=== PATIENT | female | born 1985 | race American Indian/Alaskan Native ===

== ENCOUNTER 2017-08-27 23:02 | Emergency (ER) | payer SELFPAY ==
[2017-08-27] MEDS ORDERED: ASPIRIN PO ONE (23:43)
[2017-08-28 00:04] LABS: Basophils # (Auto) 0.1 K/mm3 (0.0-0.1); Basophils % (Auto) 0.6 % (0.0-1.8); Eosinophils # (Auto) 0.2 K/mm3 (0.0-0.4); Eosinophils % (Auto) 1.8 % (0.0-4.3); Hematocrit 40.9 % (30.3-42.9); Hemoglobin 14.2 gm/dl (10.1-14.3); Lymphocytes # (Auto) 3.5 K/mm3 (1.2-5.4); Lymphocytes % (Auto) 28.2 % (13.4-35.0); Mean Corpuscular HGB Conc 35 % (30-34); Mean Corpuscular Hemoglobin 31 pg (28-32); Mean Corpuscular Volume 89 fl (79-97); Monocytes # (Auto) 0.6 K/mm3 (0.0-0.8); Monocytes % (Auto) 5.2 % (0.0-7.3); Platelet Count 250 K/mm3 (140-440); Red Blood Count 4.61 M/mm3 (3.65-5.03); Red Cell Distribution Width 13.1 % (13.2-15.2)
[2017-08-28 01:01] LABS: BUN/Creatinine Ratio 17; Blood Urea Nitrogen 10 mg/dL (7-17); Calcium 10.4 mg/dL (8.4-10.2); Hemolysis Index 13
[2017-08-28 02:13] LABS: Bilirubin,Urine NEG (Negative); Blood,Urine LG (Negative); Color,Urine Yellow (Yellow); Mucus,Urine FEW /HPF; Protein,Urine <15 mg/dL mg/dL (Negative); Urobilinogen,Urine < 2.0 mg/dL (<2.0)
[2017-08-28 02:23] LABS: Amphetamine Screen,Urine PRESUMPTIVE NEGATIVE; Benzodiazepines Screen,Urine PRESUMPTIVE NEGATIVE; Cocaine Screen,Urine PRESUMPTIVE NEGATIVE; Methadone Screen,Urine PRESUMPTIVE NEGATIVE; Opiate Screen,Urine PRESUMPTIVE NEGATIVE
[2017-08-28 02:35] LABS: Cannabinoid Screen,Urine PRESUMPTIVE POSITIVE
--- NOTE | 2017-08-28 04:14 | Emergency Department Report ---
ED Chest Pain HPI - General Chief Complaint: Chest Pain Stated Complaint: PANIC ATTACK Time Seen by Provider: 08/28/17 02:51 Source: patient Mode of arrival: Ambulatory Limitations: No Limitations - History of Present Illness Initial Comments: Patient said she also felt sweaty with tremors in the upper extremities. She felt tightness in the chest and lightheadedness. She also felt numbness and tingling in her extremities. Patient states she's been having diarrhea for the past 5 days. She however denies any abdominal pain MD Complaint: chest pain Onset/Timin (day) -: Gradual Onset: during rest Pain Location: substernal Pain Radiation: none Severity: moderate Severity scale (0 -10): 8 Quality: tightness Consistency: constant Improves With: nothing Worsens With: nothing re: nausea - Related Data Previous Rx's Medication Instructions Recorded Last Taken Type Ciprofloxacin HCl [Ciprofloxacin 500 mg PO BID #20 tablet 08/28/17 Unknown Rx TAB] metroNIDAZOLE [Flagyl] 500 mg PO Q8HR #30 tablet 08/28/17 Unknown Rx Allergies Allergy/AdvReac Type Severity Reaction Status Date / Time No Known Allergies Allergy Unverified 08/27/17 23:32 Heart Score - HEART Score History: Slightly suspicious EKG: Normal Age: < 45 Risk factors: 1-2 risk factors Troponin: < normal limit HEART Score: 1 ED Review of Systems ROS: Stated complaint: PANIC ATTACK Other details as noted in HPI Comment: All other systems reviewed and negative ED Past Medical Hx - Past Medical History Previous Medical History?: Yes Hx Diabetes: Yes Additional medical history: Polycystic Ovarian Syndrome - Surgical History Past Surgical History?: Yes Hx Cholecystectomy: Yes - Social History Smoking Status: Current Every Day Smoker Substance Use Type: Alcohol, Marijuana - Medications Home Medications: Home Medications Medication Instructions Recorded Confirmed Last Taken Type Ciprofloxacin HCl [Ciprofloxacin 500 mg PO BID #20 tablet 08/28/17 Unknown Rx TAB] metroNIDAZOLE [Flagyl] 500 mg PO Q8HR #30 tablet 08/28/17 Unknown Rx ED Physical Exam - General Limitations: No Limitations General appearance: alert, in no apparent distress - Head Head exam: Present: atraumatic, normocephalic - Eye Eye exam: Present: normal appearance - ENT ENT exam: Present: mucous membranes moist - Neck Neck exam: Present: normal inspection - Respiratory Respiratory exam: Present: normal lung sounds bilaterally. Absent: respiratory distress - Cardiovascular Cardiovascular Exam: Present: regular rate, normal rhythm. Absent: systolic murmur, diastolic murmur, rubs, gallop - GI/Abdominal GI/Abdominal exam: Present: soft, distended (uniformly distended), normal bowel sounds - Rectal Rectal exam: Present: deferred - Extremities Exam Extremities exam: Present: normal inspection - Back Exam Back exam: Present: normal inspection - Neurological Exam Neurological exam: Present: alert, oriented X3 - Psychiatric Psychiatric exam: Present: normal affect, normal mood - Skin Skin exam: Present: warm, dry, intact, normal color. Absent: rash ED Course Vital Signs 08/27/17 08/28/17 08/28/17 23:39 01:43 01:45 Temperature 98.5 F Pulse Rate 73 69 76 Respiratory 20 14 16 Rate Blood Pressure 168/99 134/73 O2 Sat by Pulse 98 99 98 Oximetry 08/28/17 01:49 Temperature Pulse Rate Respiratory 18 Rate Blood Pressure O2 Sat by Pulse 100 Oximetry ED Medical Decision Making - Lab Data Result diagrams: 08/27/17 23:52 08/27/17 23:52 - EKG Data -: EKG Interpreted by Me EKG shows normal: sinus rhythm (normal sinus rhythm at a rate of 68), axis ( normal), intervals (normal), QRS complexes (normal), ST-T waves (normal) - Medical Decision Making The patient has no abdominal pain as such I did not do a CT of abdomen and pelvis. However given the fact that she's been having diarrhea for 5 days I doubt if this is viral, we'll treat her empirically with ciprofloxacin and Flagyl. I did advise the patient to do stool studies with her primary care physician as soon as possible Critical care attestation.: If time is entered above; I have spent that time in minutes in the direct care of this critically ill patient, excluding procedure time. ED Disposition Clinical Impression: Atypical chest pain, Panic attack, Diarrhea Disposition: TO HOME OR SELFCARE Is pt being admited?: No Does the pt Need Aspirin: No Condition: Stable Instructions: Chest Pain (ED) Additional Instructions: Follow-up with your primary care physician as soon as possible for stool studies Prescriptions: Ciprofloxacin HCl [Ciprofloxacin TAB] 500 mg PO BID #20 tablet metroNIDAZOLE [Flagyl] 500 mg PO Q8HR #30 tablet Referrals: PRIMARY CARE, [Referring] - 24 Hours Time of Disposition: 04:19 Print Language: RUSSIAN
[2017-08-28] MEDS ORDERED: LEVAQUIN PO ONE (04:19)
[2017-08-28] MEDS ORDERED: FLAGYL PO ONE (04:20)
[2017-08-28 04:40] VITALS: BP 142/76
== END 2017-08-28 04:43 | disposition home or self-care (01) ==
LOC: ED 23:02
DX: F41.0 Panic disorder [episodic paroxysmal anxiety] (principal); R19.7 Diarrhea, unspecified; R20.0 Anesthesia of skin; E11.9 Type 2 diabetes mellitus without complications; F17.200 Nicotine dependence, unspecified, uncomplicated; F12.10 Cannabis abuse, uncomplicated; E28.2 Polycystic ovarian syndrome; Z79.899 Other long term (current) drug therapy
CPT/HCPCS: 36415; 80048; 80307; 81001; 84484; 85025; 93005; 93010; 99284; G0480; 80320

== ENCOUNTER 2018-10-09 06:57 | Emergency (ER) | payer OTHER ==
[2018-10-09 07:32] LABS: Basophils # (Auto) 0.1 K/mm3 (0.0-0.1); Eosinophils # (Auto) 0.2 K/mm3 (0.0-0.4); Eosinophils % (Auto) 1.7 % (0.0-4.3); Hematocrit 43.4 % (30.3-42.9); Hemoglobin 14.9 gm/dl (10.1-14.3); Lymphocytes # (Auto) 3.9 K/mm3 (1.2-5.4); Lymphocytes % (Auto) 31.6 % (13.4-35.0); Mean Corpuscular HGB Conc 34 % (30-34); Mean Corpuscular Volume 90 fl (79-97); Monocytes # (Auto) 0.8 K/mm3 (0.0-0.8); Monocytes % (Auto) 6.3 % (0.0-7.3); Platelet Count 256 K/mm3 (140-440); Red Blood Count 4.82 M/mm3 (3.65-5.03); Red Cell Distribution Width 12.9 % (13.2-15.2)
--- NOTE | 2018-10-09 07:47 | Emergency Department Report ---
HPI - General Chief Complaint: Abdominal Pain Time Seen by Provider: 10/09/18 07:17 - HPI HPI: 32-year-old -[place] female presents to the emergency Department with complaints of some pelvic pain and some vaginal pain with itching and mild discharge. She says that the pelvic pain has been going on for the past 2 days. The vaginal pain/irritation, itching and discharge has been going on for the past 2 weeks. The patient says that she tried 4 days of a "yeast infection kit" but she does not have any improvement. She denies any dysuria, fever, nausea, vomiting. She does not have a primary care physician or [employer]. She has a past medical history of diabetes and polycystic ovarian syndrome. The patient has been off of her medications for the past two months as she says that she can not afford them. ED Past Medical Hx - Past Medical History Hx Diabetes: Yes Additional medical history: Polycystic Ovarian Syndrome - Surgical History Hx Cholecystectomy: Yes - Social History Smoking Status: Current Every Day Smoker Substance Use Type: Alcohol, Marijuana - Medications Home Medications: Home Medications Medication Instructions Recorded Confirmed Last Taken Type Ciprofloxacin HCl [Ciprofloxacin 500 mg PO BID #20 tablet 08/28/17 Unknown Rx TAB] metroNIDAZOLE [Flagyl] 500 mg PO Q8HR #30 tablet 08/28/17 Unknown Rx Fluconazole [Diflucan TAB] 150 mg PO Q72H #2 tablet 10/09/18 Unknown Rx traMADol [Ultram 50 MG tab] 50 mg PO Q6HR PRN #10 tablet 10/09/18 Unknown Rx ED Review of Systems ROS: Stated complaint: ABDOMINAL/VAGINAL PAIN Other details as noted in HPI Constitutional: denies: chills, fever Eyes: denies: eye pain, vision change ENT: denies: ear pain, throat pain Respiratory: denies: cough, shortness of breath Cardiovascular: denies: chest pain, palpitations Gastrointestinal: denies: abdominal pain, vomiting Genitourinary: discharge, other (pelvic pain). denies: dysuria Musculoskeletal: denies: back pain, arthralgia Skin: denies: rash, lesions Neurological: denies: headache, weakness Physical Exam - Physical Exam Vital Signs: Vital Signs 10/09/18 07:01 Temperature 98.3 F Pulse Rate 72 Respiratory 16 Rate Blood Pressure 145/96 O2 Sat by Pulse 100 Oximetry Physical Exam: GENERAL: The patient is well-developed well-nourished. HENT: Normocephalic. Atraumatic. Patient has moist mucous membranes. EYES: Extraocular motions are intact. Pupils equal reactive to light bilaterally. NECK: Supple. Trachea is midline. CHEST/LUNGS: Clear to auscultation. There is no respiratory distress noted. HEART/CARDIOVASCULAR: Regular. There is no tachycardia. There is no murmur. ABDOMEN: Abdomen is soft, nontender. Patient has normal bowel sounds. Obese habitus. SKIN: Skin is warm and dry. NEURO: The patient is awake, alert, and oriented. The patient is cooperative. The patient has no focal neurologic deficits. The patient has normal speech. MUSCULOSKELETAL: There is no tenderness or deformity. There is no evidence of acute injury. PELVIC: The skin of the bilateral labia appears pale with some ashy white appearance and may be slightly inflamed. No visible lesions. There is some mild to moderate thin white discharge seen in the vaginal vault. ED Course Vital Signs 10/09/18 07:01 Temperature 98.3 F Pulse Rate 72 Respiratory 16 Rate Blood Pressure 145/96 O2 Sat by Pulse 100 Oximetry ED Medical Decision Making - Lab Data Result diagrams: 10/09/18 07:12 10/09/18 07:12 - Radiology Data Radiology results: report reviewed ULTRASOUND PELVIC COMPLETE ULTRASOUND PELVIS DUPLEX DOPPLER COMPLETE HISTORY: Pelvic pain. COMPARISON: None. TECHNIQUE: Transabdominal and transvaginal ultrasound with color doppler interrogation. FINDINGS: Uterus: Anteverted. 8.3 x 4.3 x 5.6 cm. No uterine mass. Normal cervix. Endometrium: Within normal limits. The endometrium measures 13 mm in thickness. Right ovary: Normal. Left ovary: Normal. No pelvic fluid or mass is identified. Spectral Doppler waveforms demonstrate arterial flow to both ovaries. IMPRESSION: Unremarkable transabdominal and transvaginal pelvic ultrasounds. Transcribed By: TTR Dictated By: BLANE MARTÍNEZ JR, MD Electronically Authenticated By: BLANE MARTÍNEZ JR, MD Signed Date/Time: 10/09/18 0902 - Medical Decision Making Patient presents to the emergency department complaining of some pelvic pain and some vaginal irritation with mild discharge. The patient's labs shows some hyperglycemia with a blood sugar of about 350 but she does not appear to be in diabetic ketoacidosis. She was given IV fluid and insulin and upon recheck her blood sugar was down to about 180. Urinalysis did not show any urinary tract infection and the patient is not . A pelvic ultrasound was done that resulted as a normal examination. Vital signs stable throughout her ED course. The patient says that she has been noncompliant with her insulin because of financial issues, which she says that she continues to have. Therefore we discussed more dietary and lifestyle changes to make and the patient will follow up outpatient with a primary care physician. She is also been given referrals for [employer] [employer]. She will return to the ER with any worsening of her symptoms or any acute distress. On examination, the patient has some pale ashy appearance and possible inflammation to the bilateral labia. This may still be consistent with a external or cutaneous yeast infection and the patient has been placed on 2 doses of Diflucan. - Differential Diagnosis ovarian torsion, ovarian cyst, BV, yeast infection Critical Care Time: No Critical care attestation.: If time is entered above; I have spent that time in minutes in the direct care of this critically ill patient, excluding procedure time. ED Disposition Clinical Impression: Pelvic pain, Candidal vulvovaginitis, Hyperglycemia Disposition: DC-01 TO HOME OR SELFCARE Is pt being admited?: No Condition: Stable Instructions: Vulvovaginal Candidiasis (ED) Additional Instructions: Please follow up with a primary care physician regarding your diabetes and for a general checkup/evaluation. You will also need to see an [employer]UFACTURING LEAD regarding your pelvic and vaginal pains. I will give you referrals for both. Return to the emergency Department with any worsening of your symptoms or any acute distress. Try and stay away from foods that are high in sugar, carbohydrates and starches to help with your blood sugar. Keep a blood sugar log. You have been prescribed a medication that is sedating and therefore should not be taken prior to driving, working, and responsible for children and in no way should be mixed with alcohol of any quantity. Prescriptions: Fluconazole [Diflucan TAB] 150 mg PO Q72H #2 tablet traMADol [Ultram 50 MG tab] 50 mg PO Q6HR PRN #10 tablet PRN Reason: Pain Referrals: [facility] [Provider Group] - 2-3 Days [facility] [Provider Group] - 2-3 Days [facility] [Outside] - 2-3 Days SHNO KIDD MD [Staff Physician] - 2-3 Days Forms: Work/School Release Form(ED)
[2018-10-09 07:55] LABS: Alanine Aminotransferase 27 units/L (7-56); Albumin 4.1 g/dL (3.9-5); BUN/Creatinine Ratio 16; Blood Urea Nitrogen 8 mg/dL (7-17); Calcium 10.6 mg/dL (8.4-10.2); Hemolysis Index 25
[2018-10-09] MEDS ORDERED: NACL 0.9% 1000 ML 1,000 ML IV ONE (08:02)
[2018-10-09] MEDS ORDERED: HumuLIN R IV ONE (08:02)
[2018-10-09 08:05] LABS: Bilirubin,Urine NEG (Negative); Blood,Urine SM (Negative); Color,Urine Yellow (Yellow); Mucus,Urine FEW /HPF; Protein,Urine <15 mg/dL mg/dL (Negative); Urobilinogen,Urine < 2.0 mg/dL (<2.0)
--- NOTE | 2018-10-09 09:07 | Ultrasound Report ---
ULTRASOUND PELVIC COMPLETE ULTRASOUND PELVIS DUPLEX DOPPLER COMPLETE HISTORY: Pelvic pain. COMPARISON: None. TECHNIQUE: Transabdominal and transvaginal ultrasound with color doppler interrogation. FINDINGS: Uterus: Anteverted. 8.3 x 4.3 x 5.6 cm. No uterine mass. Normal cervix. Endometrium: Within normal limits. The endometrium measures 13 mm in thickness. Right ovary: Normal. Left ovary: Normal. No pelvic fluid or mass is identified. Spectral Doppler waveforms demonstrate arterial flow to both ovaries. IMPRESSION: Unremarkable transabdominal and transvaginal pelvic ultrasounds.
[2018-10-09 10:15] VITALS: BP 158/100
== END 2018-10-09 10:13 | disposition home or self-care (01) ==
LOC: ED 06:57
DX: B37.3 Candidiasis of vulva and vagina (principal); F17.200 Nicotine dependence, unspecified, uncomplicated; F12.10 Cannabis abuse, uncomplicated; E11.65 Type 2 diabetes mellitus with hyperglycemia; Z90.49 Acquired absence of other specified parts of digestive tract; Z91.011 Allergy to milk products
CPT/HCPCS: 36415; 76830; 80053; 81001; 82962; 83690; 84703; 85025; 87210; 93975; 96361; 96374; 99285; J7030; J1815

== ENCOUNTER 2019-07-25 20:07 | Emergency (ER) | payer SELFPAY ==
[2019-07-26 02:25] LABS: Basophils # (Auto) 0.1 K/mm3 (0.0-0.1); Basophils % (Auto) 1.1 % (0.0-1.8); Eosinophils # (Auto) 0.2 K/mm3 (0.0-0.4); Eosinophils % (Auto) 1.9 % (0.0-4.3); Hemoglobin 14.6 gm/dl (10.1-14.3); Lymphocytes # (Auto) 3.9 K/mm3 (1.2-5.4); Lymphocytes % (Auto) 32.7 % (13.4-35.0); Mean Corpuscular HGB Conc 34 % (30-34); Mean Corpuscular Volume 89 fl (79-97); Monocytes # (Auto) 0.8 K/mm3 (0.0-0.8); Monocytes % (Auto) 6.9 % (0.0-7.3); Platelet Count 255 K/mm3 (140-440); Red Blood Count 4.81 M/mm3 (3.65-5.03)
[2019-07-26 02:47] LABS: Alanine Aminotransferase 26 units/L (7-56); BUN/Creatinine Ratio 20; Blood Urea Nitrogen 10 mg/dL (7-17); Calcium 10.5 mg/dL (8.4-10.2); Hemolysis Index 17
[2019-07-26 04:39] LABS: Bilirubin,Urine NEG (Negative); Blood,Urine NEG (Negative); Color,Urine Straw (Yellow); Mucus,Urine FEW /HPF; Protein,Urine <15 mg/dL mg/dL (Negative); Urobilinogen,Urine < 2.0 mg/dL (<2.0)
[2019-07-26] MEDS ORDERED: DICYCLOMINE 20 MG/2 ML INJ IM ONE (06:36)
[2019-07-26] MEDS ORDERED: FAMOTIDINE 20 MG TAB PO ONE (06:36)
[2019-07-26] MEDS ORDERED: METOCLOPRAMIDE 10 MG TAB PO ONE (06:36)
[2019-07-26] MEDS ORDERED: INSULIN REGULAR, HUMAN 100 UNITS/1 ML SUB-Q ONE (06:36)
[2019-07-26] MEDS ORDERED: ACETAMINOPHEN 325 MG TAB PO ONE (06:36)
--- NOTE | 2019-07-26 06:37 | Emergency Department Report ---
ED General Adult HPI - General Chief complaint: Abdominal Pain Stated complaint: FLU SYM Time Seen by Provider: 07/26/19 06:04 Source: patient, RN notes reviewed, old records reviewed Mode of arrival: Ambulatory Limitations: No Limitations - History of Present Illness Initial comments: During the entire history and physical examination, I am janitorial services supervisor and escorted by obstetrics gyn Ghanshyam Badillo The patient is a 33-year-old female, obese, with a history of possible PCOS, diabetes, noncompliant with metformin therapy. Prior urine screening toxicology studies have demonstrated the presence of marijuana. The patient presents to the ER today with a complaint of resolved lower abdominal pain, nausea and vomiting. She is not having pain at the moment. W hen she was having pain, she described it as cramping. She threw up once or twice, 7-1/2 hours ago, nonbloody, nonbilious, now resolved. She is defecating normally. She reports urinary urge, however, denies dysuria. At the moment, is no complaint of headache, neck pain, chest pain, abdominal pain, shortness of breath. She endorses occasional relief of symptoms after taking a hot bath or hot shower Location: abdomen Consistency: now resolved Improves with: none Worsens with: none - Related Data Previous Rx's Medication Instructions Recorded Last Taken Type Ciprofloxacin HCl [Ciprofloxacin 500 mg PO BID #20 tablet 08/28/17 Unknown Rx TAB] metroNIDAZOLE [Flagyl] 500 mg PO Q8HR #30 tablet 08/28/17 Unknown Rx Fluconazole [Diflucan TAB] 150 mg PO Q72H #2 tablet 10/09/18 Unknown Rx Acetaminophen [Tylenol] 650 mg PO Q6HR PRN #30 capsule 07/26/19 Unknown Rx Famotidine [Pepcid] 20 mg PO BID PRN #60 tablet 07/26/19 Unknown Rx Metoclopramide [Reglan] 10 mg PO QID PRN #30 tab 07/26/19 Unknown Rx metFORMIN [Glucophage] 500 mg PO BID #60 tablet 07/26/19 Unknown Rx Allergies Allergy/AdvReac Type Severity Reaction Status Date / Time milk AdvReac Diarrhea Verified 10/09/18 07:01 ED Review of Systems ROS: Stated complaint: FLU SYM Other details as noted in HPI Constitutional: denies: fever Eyes: denies: eye discharge ENT: denies: congestion Respiratory: denies: wheezing Cardiovascular: denies: syncope Gastrointestinal: abdominal pain, nausea, vomiting. denies: diarrhea, constipation, hematemesis, melena, hematochezia Genitourinary: as per HPI Musculoskeletal: as per HPI Skin: as per HPI Neurological: as per HPI Psychiatric: as per HPI Hematological/Lymphatic: as per HPI ED Past Medical Hx - Past Medical History Previous Medical History?: Yes Hx Diabetes: Yes Additional medical history: Polycystic Ovarian Syndrome - Surgical History Past Surgical History?: Yes Hx Cholecystectomy: Yes - Social History Smoking Status: Current Every Day Smoker Substance Use Type: Marijuana - Medications Home Medications: Home Medications Medication Instructions Recorded Confirmed Last Taken Type Ciprofloxacin HCl [Ciprofloxacin 500 mg PO BID #20 tablet 08/28/17 Unknown Rx TAB] metroNIDAZOLE [Flagyl] 500 mg PO Q8HR #30 tablet 08/28/17 Unknown Rx Fluconazole [Diflucan TAB] 150 mg PO Q72H #2 tablet 10/09/18 Unknown Rx Acetaminophen [Tylenol] 650 mg PO Q6HR PRN #30 capsule 07/26/19 Unknown Rx Famotidine [Pepcid] 20 mg PO BID PRN #60 tablet 07/26/19 Unknown Rx Metoclopramide [Reglan] 10 mg PO QID PRN #30 tab 07/26/19 Unknown Rx metFORMIN [Glucophage] 500 mg PO BID #60 tablet 07/26/19 Unknown Rx ED Physical Exam - General Limitations: No Limitations General appearance: alert, in no apparent distress - Head Head exam: Present: atraumatic, normocephalic - Eye Eye exam: Present: normal appearance, EOMI. Absent: nystagmus - ENT ENT exam: Present: normal exam, normal orophraynx, mucous membranes moist, normal external ear exam - Neck Neck exam: Present: normal inspection, full ROM. Absent: tenderness, meningismus - Respiratory Respiratory exam: Present: normal lung sounds bilaterally. Absent: respiratory distress - Cardiovascular Cardiovascular Exam: Present: regular rate, normal rhythm, normal heart sounds. Absent: bradycardia, tachycardia, irregular rhythm, systolic murmur, diastolic murmur, rubs, gallop - GI/Abdominal GI/Abdominal exam: Present: soft, normal bowel sounds, other (There is no right lower quadrant tenderness, there is no right upper quadrant tenderness, there is a negative Burns sign and negative Rovsing sign.). Absent: distended, tenderness, guarding, rebound, rigid, pulsatile mass - Extremities Exam Extremities exam: Present: normal inspection, full ROM, other (2+ pulses noted in the bilateral upper and lower extremities. There is no palpable cord. negative Homans sign. Muscular compartments are soft. The pelvis is stable.). Absent: pedal edema, calf tenderness - Back Exam Back exam: Present: normal inspection. Absent: tenderness, CVA tenderness (R), CVA tenderness (L), paraspinal tenderness, vertebral tenderness - Neurological Exam Neurological exam: Present: alert, normal gait, other (There is no facial droop. The tongue is midline. Extraocular movements are intact bilaterally. There is 5 out of 5 strength in bilateral upper and lower extremities. Sensation is intact to light touch bilateral upper and lower extremities. There is a normal gait.). Absent: motor sensory deficit - Psychiatric Psychiatric exam: Present: normal affect, normal mood - Skin Skin exam: Present: warm, dry, intact, normal color. Absent: rash ED Course Vital Signs 07/25/19 07/26/19 07/26/19 21:51 06:45 06:55 Temperature 98.6 F 97.8 F Pulse Rate 72 58 L Respiratory 18 18 18 Rate Blood Pressure 139/88 Blood Pressure 139/73 [Left] O2 Sat by Pulse 97 95 Oximetry ED Medical Decision Making - Lab Data Result diagrams: 07/26/19 02:15 07/26/19 02:15 Vital Signs 07/25/19 07/26/19 07/26/19 21:51 06:45 06:55 Temperature 98.6 F 97.8 F Pulse Rate 72 58 L Respiratory 18 18 18 Rate Blood Pressure 139/88 Blood Pressure 139/73 [Left] O2 Sat by Pulse 97 95 Oximetry Lab Results 07/25/19 07/26/19 07/26/19 Range/Units 22:08 02:15 02:15 WBC 11.8 H (4.5-11.0) K/mm3 RBC 4.81 (3.65-5.03) M/mm3 Hgb 14.6 H (10.1-14.3) gm/dl Hct 43.0 H (30.3-42.9) % MCV 89 (79-97) fl MCH 30 (28-32) pg MCHC 34 (30-34) % RDW 13.0 L (13.2-15.2) % Plt Count 255 (140-440) K/mm3 Lymph % (Auto) 32.7 (13.4-35.0) % [place] % (Auto) 6.9 (0.0-7.3) % Eos % (Auto) 1.9 (0.0-4.3) % Baso % (Auto) 1.1 (0.0-1.8) % Lymph # 3.9 (1.2-5.4) K/mm3 [place] # 0.8 (0.0-0.8) K/mm3 Eos # 0.2 (0.0-0.4) K/mm3 Baso # 0.1 (0.0-0.1) K/mm3 Seg Neutrophils % 57.4 (40.0-70.0) % Seg Neutrophils # 6.8 (1.8-7.7) K/mm3 Sodium 133 L (137-145) mmol/L Potassium 4.0 (3.6-5.0) mmol/L Chloride 96.0 L (98-107) mmol/L Carbon Dioxide 24 (22-30) mmol/L Anion Gap 17 mmol/L BUN 10 (7-17) mg/dL Creatinine 0.5 L (0.7-1.2) mg/dL Estimated GFR > 60 ml/min BUN/Creatinine Ratio 20 % Glucose 310 H (65-100) mg/dL POC Glucose 311 H (70-105) Calcium 10.5 H (8.4-10.2) mg/dL Total Bilirubin 0.20 (0.1-1.2) mg/dL AST 21 (5-40) units/L ALT 26 (7-56) units/L Alkaline Phosphatase 96 (35-129) units/L Total Protein 7.5 (6.3-8.2) g/dL Albumin 4.0 (3.9-5) g/dL Albumin/Globulin Ratio 1.1 % Lipase 29 (13-60) units/L HCG, Qual (Negative) Urine Color (Yellow) Urine Turbidity (Clear) Urine pH (5.0-7.0) Ur Specific [place] (1.003-1.030) Urine Protein (Negative) mg/dL Urine Glucose (UA) (Negative) mg/dL Urine Ketones (Negative) mg/dL Urine Blood (Negative) Urine Nitrite (Negative) Urine Bilirubin (Negative) Urine Urobilinogen (<2.0) mg/dL Ur Leukocyte Esterase (Negative) Urine WBC (Auto) (0.0-6.0) /HPF Urine RBC (Auto) (0.0-6.0) /HPF U Epithel Cells (Auto) (0-13.0) /HPF Urine Mucus /HPF 07/26/19 07/26/19 Range/Units 02:15 Unknown WBC (4.5-11.0) K/mm3 RBC (3.65-5.03) M/mm3 Hgb (10.1-14.3) gm/dl Hct (30.3-42.9) % MCV (79-97) fl MCH (28-32) pg MCHC (30-34) % RDW (13.2-15.2) % Plt Count (140-440) K/mm3 Lymph % (Auto) (13.4-35.0) % [place] % (Auto) (0.0-7.3) % Eos % (Auto) (0.0-4.3) % Baso % (Auto) (0.0-1.8) % Lymph # (1.2-5.4) K/mm3 [place] # (0.0-0.8) K/mm3 Eos # (0.0-0.4) K/mm3 Baso # (0.0-0.1) K/mm3 Seg Neutrophils % (40.0-70.0) % Seg Neutrophils # (1.8-7.7) K/mm3 Sodium (137-145) mmol/L Potassium (3.6-5.0) mmol/L Chloride (98-107) mmol/L Carbon Dioxide (22-30) mmol/L Anion Gap mmol/L BUN (7-17) mg/dL Creatinine (0.7-1.2) mg/dL Estimated GFR ml/min BUN/Creatinine Ratio % Glucose (65-100) mg/dL POC Glucose (70-105) Calcium (8.4-10.2) mg/dL Total Bilirubin (0.1-1.2) mg/dL AST (5-40) units/L ALT (7-56) units/L Alkaline Phosphatase (35-129) units/L Total Protein (6.3-8.2) g/dL Albumin (3.9-5) g/dL Albumin/Globulin Ratio % Lipase (13-60) units/L HCG, Qual Negative (Negative) Urine Color Straw (Yellow) Urine Turbidity Clear (Clear) Urine pH 5.0 (5.0-7.0) Ur Specific [place] 1.033 H (1.003-1.030) Urine Protein <15 mg/dl (Negative) mg/dL Urine Glucose (UA) >=500 (Negative) mg/dL Urine Ketones Neg (Negative) mg/dL Urine Blood Neg (Negative) Urine Nitrite Neg (Negative) Urine Bilirubin Neg (Negative) Urine Urobilinogen < 2.0 (<2.0) mg/dL Ur Leukocyte Esterase Neg (Negative) Urine WBC (Auto) 1.0 (0.0-6.0) /HPF Urine RBC (Auto) 1.0 (0.0-6.0) /HPF U Epithel Cells (Auto) 2.0 (0-13.0) /HPF Urine Mucus Few /HPF - EKG Data -: EKG Interpreted by Ok - EKG Data 07/26/19 07:22 EKG shows sinus rhythm, bradycardia, normal axis, QTC within normal limits, FL interval within normal limits, there is no endorsement of chest pain, the EKG is fairly unremarkable, it is not an ST elevation myocardial infarction - Medical Decision Making Differential diagnosis, including but not limited to: Gastroparesis, cyclic vomiting syndrome, cannabinoid hyperemesis syndrome, constipation Assessment and plan: 33-year-old female with resolved abdominal pain, nausea and vomiting. She is afebrile with reassuring vital signs. There is currently no abdominal pain, and she is not tender on her examination. When I walked into the room to examine the patient, she is sleeping on a stretcher, and in no acute distress. We will refill her metformin prescription, she is advised to abstain from marijuana consumption, laboratory studies reviewed and appreciated, hyperglycemia chronic, without anion gap acidosis. Patient will need to follow- up with an outpatient primary care doctor, participate in diet and lifestyle modifications. At the moment, she does not appear to have an emergency medical condition present. Critical care attestation.: If time is entered above; I have spent that time in minutes in the direct care of this critically ill patient, excluding procedure time. ED Disposition Clinical Impression: History of abdominal pain, History of nausea and vomiting Disposition: DC- TO HOME OR SELFCARE Is pt being admited?: No Does the pt Need Aspirin: No Condition: Stable Additional Instructions: We recommend that the patient diet, lose weight, participate in physical activities as tolerated, drink 4 to 6 cups of water per day, and eat plenty of fiber, vegetables, and lean protein. Avoid consumption of marijuana, alcohol, and avoid secondhand exposure to marijuana. Take medications as needed for pain, take the nausea medication as needed for nausea, and metformin medication as directed. Recommend follow-up with a primary care doctor within the next 4 weeks. Please return to the emergency room right away with projectile vomiting, change in mental status, confusion, inability to tolerate liquid feeds, new, worsened or different symptoms not present on the initial emergency room evaluation. Referrals: LANEY MORELAND MD [Staff Physician] - as needed [facility] [Provider Group] - as needed [facility] [Provider Group] - as needed Forms: Work/School Release Form(ED)
[2019-07-26 07:12] VITALS: BP 139/73
== END 2019-07-26 07:35 | disposition home or self-care (01) ==
LOC: ED 20:07
DX: R10.30 Lower abdominal pain, unspecified (principal); R11.2 Nausea with vomiting, unspecified; E11.9 Type 2 diabetes mellitus without complications; F17.200 Nicotine dependence, unspecified, uncomplicated; F12.10 Cannabis abuse, uncomplicated
CPT/HCPCS: 36415; 80053; 81001; 82962; 83690; 84703; 85025; 93005; 93010; 96372; 99283; J0500; J1815

== ENCOUNTER 2020-04-01 23:19 | Emergency (ER) | payer OTHER ==
[2020-04-01] MEDS ORDERED: ASPIRIN 325 MG TAB PO ONE (23:27)
--- NOTE | 2020-04-01 23:52 | XRay Report ---
CHEST 1 VIEW 04/01/2020 11:32 PM INDICATION / CLINICAL INFORMATION: Chest Pain. COMPARISON: None available. FINDINGS: SUPPORT DEVICES: None. HEART / MEDIASTINUM: No significant abnormality. LUNGS / PLEURA: No significant pulmonary or pleural abnormality. No pneumothorax. ADDITIONAL FINDINGS: No significant additional findings. IMPRESSION: 1. No acute findings. Signer Name: William Neumann MD Signed: 04/01/2020 11:52 PM Workstation Name: [id number]
[2020-04-02 00:27] LABS: Basophils # (Auto) 0.1 K/mm3 (0.0-0.1); Basophils % (Auto) 0.5 % (0.0-1.8); Eosinophils # (Auto) 0.2 K/mm3 (0.0-0.4); Eosinophils % (Auto) 2.3 % (0.0-4.3); Hematocrit 41.2 % (30.3-42.9); Hemoglobin 14.2 gm/dl (10.1-14.3); Lymphocytes # (Auto) 2.9 K/mm3 (1.2-5.4); Lymphocytes % (Auto) 26.9 % (13.4-35.0); Mean Corpuscular HGB Conc 34 % (30-34); Mean Corpuscular Volume 91 fl (79-97); Monocytes # (Auto) 0.6 K/mm3 (0.0-0.8); Monocytes % (Auto) 5.4 % (0.0-7.3); Platelet Count 252 K/mm3 (140-440); Red Blood Count 4.51 M/mm3 (3.65-5.03); Red Cell Distribution Width 12.9 % (13.2-15.2)
[2020-04-02 00:47] LABS: Blood Urea Nitrogen 9 mg/dL (7-17); Calcium 9.8 mg/dL (8.4-10.2); Hemolysis Index 4
[2020-04-02 00:50] LABS: BUN/Creatinine Ratio 18
--- NOTE | 2020-04-02 02:08 | Emergency Department Report ---
ED General Adult HPI - General Chief complaint: Extremity Problem,Nontraumatic Stated complaint: LEFT LEG SWOLLEN/RAPID HEARTBEAT Time Seen by Provider: 04/02/20 01:05 Source: patient Mode of arrival: Ambulatory Limitations: No Limitations - History of Present Illness Initial comments: 34-year-old female with past medical history of diabetes presents emergency department complaining of pain and swelling progressively worsening fashion. Reports dull throbbing pain with ambulation and certain range of motion. Also has been having some issues rotations weeks as well with no nausea vomiting no headache notes no presyncope no shortness of breath no hemoptysis no hematemesis no hematochezia. Reports compliance with her diabetic medication -: Gradual Quality: dull Consistency: constant Improves with: none Worsens with: none Associated Symptoms: denies: chest pain, cough, headaches, loss of appetite, malaise, rash, seizure, shortness of breath, syncope, other Treatments Prior to Arrival: none - Related Data Previous Rx's Medication Instructions Recorded Last Taken Type Ciprofloxacin HCl [Ciprofloxacin 500 mg PO BID #20 tablet 08/28/17 Unknown Rx TAB] metroNIDAZOLE [Flagyl] 500 mg PO Q8HR #30 tablet 08/28/17 Unknown Rx Fluconazole (Nf) [Diflucan TAB] 150 mg PO Q72H #2 tablet 10/09/18 Unknown Rx Acetaminophen [Tylenol] 650 mg PO Q6HR PRN #30 capsule 07/26/19 Unknown Rx Famotidine [Pepcid] 20 mg PO BID PRN #60 tablet 07/26/19 Unknown Rx Metoclopramide [Reglan] 10 mg PO QID PRN #30 tab 07/26/19 Unknown Rx metFORMIN [Glucophage] 500 mg PO BID #60 tablet 07/26/19 Unknown Rx Ibuprofen [Motrin] 800 mg PO Q8HR PRN #30 tablet 10/17/19 Unknown Rx tiZANidine [Zanaflex 4mg TAB] 4 mg PO Q8H PRN #21 tablet 10/17/19 Unknown Rx Allergies Allergy/AdvReac Type Severity Reaction Status Date / Time milk AdvReac Diarrhea Verified 10/17/19 18:08 ED Review of Systems ROS: Stated complaint: LEFT LEG SWOLLEN/RAPID HEARTBEAT Other details as noted in HPI Comment: All other systems reviewed and negative ED Past Medical Hx - Past Medical History Hx Diabetes: Yes Additional medical history: Polycystic Ovarian Syndrome - Surgical History Hx Cholecystectomy: Yes - Social History Smoking Status: Current Every Day Smoker Substance Use Type: Alcohol, Marijuana - Medications Home Medications: Home Medications Medication Instructions Recorded Confirmed Last Taken Type Ciprofloxacin HCl [Ciprofloxacin 500 mg PO BID #20 tablet 08/28/17 Unknown Rx TAB] metroNIDAZOLE [Flagyl] 500 mg PO Q8HR #30 tablet 08/28/17 Unknown Rx Fluconazole (Nf) [Diflucan TAB] 150 mg PO Q72H #2 tablet 10/09/18 Unknown Rx Acetaminophen [Tylenol] 650 mg PO Q6HR PRN #30 capsule 07/26/19 Unknown Rx Famotidine [Pepcid] 20 mg PO BID PRN #60 tablet 07/26/19 Unknown Rx Metoclopramide [Reglan] 10 mg PO QID PRN #30 tab 07/26/19 Unknown Rx metFORMIN [Glucophage] 500 mg PO BID #60 tablet 07/26/19 Unknown Rx Ibuprofen [Motrin] 800 mg PO Q8HR PRN #30 tablet 10/17/19 Unknown Rx tiZANidine [Zanaflex 4mg TAB] 4 mg PO Q8H PRN #21 tablet 10/17/19 Unknown Rx ED Physical Exam - General Limitations: No Limitations General appearance: alert, in no apparent distress - Head Head exam: Present: atraumatic, normocephalic - Eye Eye exam: Present: normal appearance, PERRL, EOMI Pupils: Present: normal accommodation - ENT ENT exam: Present: mucous membranes moist - Neck Neck exam: Present: normal inspection, full ROM - Respiratory Respiratory exam: Present: normal lung sounds bilaterally. Absent: respiratory distress - Cardiovascular Cardiovascular Exam: Present: regular rate, normal rhythm. Absent: systolic murmur, diastolic murmur, rubs, gallop - GI/Abdominal GI/Abdominal exam: Present: soft, normal bowel sounds - Extremities Exam Extremities exam: Present: normal inspection, tenderness, joint swelling - Expanded Lower Extremity Exam Left Knee exam: Present: tenderness, swelling, effusion. Absent: ecchymosis, deformity, crepidus, pain/laxity with valgus, pain/laxity with varus - Back Exam Back exam: Present: normal inspection - Neurological Exam Neurological exam: Present: alert, oriented X3 - Psychiatric Psychiatric exam: Present: normal affect, normal mood - Skin Skin exam: Present: warm, dry, intact, normal color. Absent: rash ED Course Vital Signs 04/01/20 23:24 Temperature 98.9 F Pulse Rate 80 Respiratory 18 Rate Blood Pressure 175/108 O2 Sat by Pulse 96 Oximetry ED Medical Decision Making - Lab Data Result diagrams: 04/01/20 23:50 04/01/20 23:50 Critical care attestation.: If time is entered above; I have spent that time in minutes in the direct care of this critically ill patient, excluding procedure time. ED Disposition Condition: Stable Referrals: PRIMARY CARE [Primary Care Provider] - 3-5 Days
--- NOTE | 2020-04-02 02:27 | XRay Report ---
LEFT KNEE 3 VIEWS INDICATION / CLINICAL INFORMATION: knee pain and effusion. COMPARISON: None available. FINDINGS: BONES/JOINT(S): No acute fracture or subluxation. Small joint effusion. No significant degenerative c hange. SOFT TISSUES: No significant abnormality. ADDITIONAL FINDINGS: None. Signer Name: William Neumann MD Signed: 04/02/2020 2:26 AM Workstation Name: [id number]
[2020-04-02 06:07] VITALS: BP 148/87
== END 2020-04-02 05:40 | disposition home or self-care (01) ==
LOC: ED 23:19
DX: M79.89 Other specified soft tissue disorders (principal); R00.0 Tachycardia, unspecified; E11.9 Type 2 diabetes mellitus without complications; F17.200 Nicotine dependence, unspecified, uncomplicated; F12.90 Cannabis use, unspecified, uncomplicated; Z91.011 Allergy to milk products; Z79.899 Other long term (current) drug therapy; Z90.49 Acquired absence of other specified parts of digestive tract
CPT/HCPCS: 36415; 71045; 80048; 84484; 85025; 93005

== ENCOUNTER 2021-04-07 23:55 | Emergency (ER) | payer OTHER ==
--- NOTE | 2021-04-08 04:51 | Emergency Department Report ---
ED Rash HPI - HPI Chief Complaint: Urogenital-Female Stated Complaint: VAGINAL DISCOMFORT NAUSEA Time Seen by Provider: 04/08/21 02:05 Duration: 3 Days Location: Other (Vaginal area) Suspected Cause: Other (New cast or palpable insult) Severity: mild ED Review of Systems ROS: Stated complaint: VAGINAL DISCOMFORT NAUSEA Other details as noted in HPI Comment: All other systems reviewed and negative ED Past Medical Hx - Past Medical History Previous Medical History?: Yes Hx Diabetes: Yes Additional medical history: Polycystic Ovarian Syndrome - Surgical History Past Surgical History?: Yes Hx Cholecystectomy: Yes - Social History Smoking Status: Current Every Day Smoker Substance Use Type: Alcohol, Marijuana - Medications Home Medications: Home Medications Medication Instructions Recorded Confirmed Last Taken Type Ciprofloxacin HCl [Ciprofloxacin 500 mg PO BID #20 tablet 08/28/17 Unknown Rx TAB] metroNIDAZOLE [Flagyl] 500 mg PO Q8HR #30 tablet 08/28/17 Unknown Rx Fluconazole (Nf) [Diflucan TAB] 150 mg PO Q72H #2 tablet 10/09/18 Unknown Rx Acetaminophen [Tylenol] 650 mg PO Q6HR PRN #30 capsule 07/26/19 Unknown Rx Famotidine [Pepcid] 20 mg PO BID PRN #60 tablet 07/26/19 Unknown Rx Metoclopramide [Reglan] 10 mg PO QID PRN #30 tab 07/26/19 Unknown Rx metFORMIN [Glucophage] 500 mg PO BID #60 tablet 07/26/19 Unknown Rx Ibuprofen [Motrin] 800 mg PO Q8HR PRN #30 tablet 10/17/19 Unknown Rx tiZANidine [Zanaflex 4mg TAB] 4 mg PO Q8H PRN #21 tablet 10/17/19 Unknown Rx Ketorolac [Toradol] 10 mg PO Q6H PRN #20 tablet 04/02/20 Unknown Rx Mometasone Furoate [Elocon] 0.5 gm TP DAILY #15 oint...g. 04/08/21 Unknown Rx Pramoxine HCl [Vagisil] 1 each TP 4XD #1 towelette 04/08/21 Unknown Rx Rash Exam - Exam General: Vital signs noted. No distress. Alert and acting appropriately. HEENT: No Periorbital Edema, No Conjuctival Injection, No Chemosis, No Perioral Edema, No Tongue Edema, No Uvular Edema, No Compromised Airway, No Drooling Lungs: Yes Good Air Exchange (Normal Breath Sounds), No Wheezes, No Ronchi, No Stridor, No Cough, No Labored Respirations, No Retractions, No Use of Accessory Muscles, No Other Abnormal Lung Sounds Heart: Yes Regular, No Murmur Front/Back of Body, Lg (Color): 1 - [employer] Supervisor banking paralegal was present during examination. Did evaluate the to the genital region of the patient did find excoriated contact dermatitis-like rash to the labia down to the vulvar region Skin: Yes Excoriations Other: Positive: Abdomen Normal, Neurologic Normal, Musculoskeletal Normal ED Course Vital Signs 04/07/21 23:59 Temperature 97.6 F Pulse Rate 63 Respiratory 18 Rate Blood Pressure 168/94 O2 Sat by Pulse 99 Oximetry Critical care attestation.: If time is entered above; I have spent that time in minutes in the direct care of this critically ill patient, excluding procedure time. ED Disposition Clinical Impression: Vulvar dermatitis Disposition: HOME / SELF CARE / HOMELESS Is pt being admited?: No Does the pt Need Aspirin: No Condition: Stable Additional Instructions: Contact dermatitis of the vulva What is contact dermatitis of the vulva? It is a skin problem that causes: Vulvar or vaginal burning Irritation Itching It happens when the vulvar skin becomes sensitive to products called contact irritants. This can be sudden or get worse slowly with repeated exposure to irritants, such as: Laundry detergents Fabric softeners and dryer sheets Body soaps Feminine products (douches, vaginal deodorants, [id number] vaginal creams and ointments, pads, wipes) What are the signs? Mild to severe burning and/or itching of the vulva Vulvar redness and swelling Raw feeling due to the vulvar irritation Damp or wet feeling due to weeping of the irritated skin surface Some women mistake this dampness as vaginal discharge. Pain with insertion of a tampon, speculum, or with intercourse How is it diagnosed? Your provider will do an exam of the vulva to look for skin changes. A sample of your vaginal discharge may be tested to rule out infection. What irritants should be avoided? Laundry detergents with enzymes, whiteners, and brighteners Fabric softeners and dryer sheets Perfumed bath soaps, gels, and lotions Bubble bath, oils, bath salts, and skin softeners Feminine hygiene sprays, perfumes, and powders Adult and baby wipes or towelettes Deodorant tampons and pads Douches Contraceptive creams, jellies, foams, and sponges Condoms, prepackaged with lubricant or spermicides Colored, perfumed (aloe) toilet paper Nylon underwear or panty hose Other irritantstalk about these at your visit How is it treated? Remove irritants Follow the Vulvar Skin Care Guidelines. Steroid ointments Put a thin layer to sites of discomfort. This will slowly lessen redness, swelling, itching, and burning. Use only as prescribed by your provider. Overuse may result in thinning of the skin. This will make your problem worse. Baking soda soaks Follow the Vulvar Skin Care Guidelines. Gold Roberto or Zeasorb Powder These may be sprinkled in your underwear if dampness is a problem. Do not use powders with cornstarch. Other treatment options: Do not wear pads daily. Change your underwear when they are damp. Do not sleep in underwear at night. Use extra virgin olive oil, vegetable oil, or zinc oxide ointment to protect the vulvar skin when you are not using a steroid ointment. It should slowly get better. Call your provider if you still have symptoms. Prescriptions: Mometasone Furoate [Elocon] 0.5 gm TP DAILY #15 oint...g. Pramoxine HCl [Vagisil] 1 each TP 4XD #1 towelette Referrals: [facility] [Other] - 3-5 Days
[2021-04-08 05:50] VITALS: BP 148/78
== END 2021-04-08 05:42 | disposition home or self-care (01) ==
LOC: ED 23:55
DX: L30.9 Dermatitis, unspecified (principal); F12.10 Cannabis abuse, uncomplicated; F17.200 Nicotine dependence, unspecified, uncomplicated; E11.9 Type 2 diabetes mellitus without complications
CPT/HCPCS: 99282